=== PATIENT | male | born 1980 | race African-American/Black ===

== ENCOUNTER 2023-03-05 11:15 | Outpatient (CLI) | payer OTHER ==
--- NOTE | 2023-03-05 13:33 | XRAY Report ---
PROCEDURE: Lumbar Spine 2 View INDICATIONS: STRAIN/SPRAIN OF LOW BACK TECHNIQUE: 2 views of the lumbar spine were acquired. COMPARISON: None. FINDINGS: Bones: 5 [id number] vertebrae are present. Mild facet arthropathy of the lower lumbar spine. Mi ld disc height loss at L5-S1. There is normal bony alignment. No vertebral body compression fracture s. No suspicious bony lesions. Soft tissues: Overlying bowel gas pattern is normal. No suspicious soft tissue calcifications. IMPRESSION: Mild degenerative changes of the lower lumbar spine. Reviewed by: Juvencio Membreno MD on 03/05/2023 1:32 PM PST Approved by: Juvencio Membreno MD on 03/05/2023 1:32 PM PST Station ID: [id number]
== END 2023-03-05 11:16 | disposition home or self-care (01) ==
LOC: DI 11:15
PROVIDERS: ATTEND Family Medicine
DX: M47.817 Spondylosis without myelopathy or radiculopathy, lumbosacral region (principal); M47.816 Spondylosis without myelopathy or radiculopathy, lumbar region; S39.012D Strain of muscle, fascia and tendon of lower back, subsequent encounter

== ENCOUNTER 2023-04-12 02:54 | Emergency (ER) | payer OTHER ==
[2023-04-12 03:12] VITALS: O2SAT 98
--- NOTE | 2023-04-12 05:28 | ED Physician Documentation ---
History of Present Illness - Stated complaint Stated Complaint: LT KNEE PX - Chief complaint Chief Complaint: Ext Problem - History obtained from History obtained from: Patient - Additonal information Additional information: HPI from patient. Patient c/o left knee swelling, pain x 1-2 days. Denies trauma. Denies h/o similar symptoms. Pain is worse with palpation, movement (flexion), weight- bearing. Denies fever. Review of Systems Constitutional: denies: Fever Musculoskeletal: reports: Joint pain, Joint swelling Neurologic: denies: Focal weakness, Numbness PD PAST MEDICAL HISTORY - Past Medical History Past Medical History: Yes GI: GERD - Past Surgical History Past Surgical History: No - Present Medications Home Medications: Ambulatory Orders Medication Instructions Recorded Confirmed Cyclobenzaprine [Flexeril] 10 mg PO TID PRN 04/12/23 04/12/23 Ibuprofen [Motrin] 600 mg PO Q6H PRN 04/12/23 04/12/23 Ibuprofen [Motrin] 600 mg PO Q6H PRN #20 tab 04/12/23 Levothyroxine Sodium [Synthroid] 75 mcg PO DAILY 04/12/23 04/12/23 Omeprazole Magnesium 20 mg PO DAILY 04/12/23 04/12/23 oxyCODONE [Roxicodone] 5 - 10 mg PO Q6H PRN #14 tablet 04/12/23 - Allergies Allergies/Adverse Reactions: Allergies Allergy/AdvReac Type Severity Reaction Status Date / Time No Known Drug Allergies Allergy Verified 04/12/23 03:11 - Social History Does the pt smoke?: No Smoking Status: Never smoker Does the pt drink ETOH?: Yes Does the pt have substance abuse?: No PD ED PE NORMAL - Vitals Vital signs reviewed: Yes - General General: Alert and oriented X 3, No acute distress, Well developed/nourished PD ED PE EXPANDED - Extremities Extremities: Other (left knee is swollen, faint erythema, subtle increased warmth compared to surrounding skin and other knee. ROM limited: flexion limited due to pain with flexion) Results - Vitals Vitals: Oxygen O2 Source Room air PD Medical Decision Making - ED course Complexity details: considered differential, d/w patient ED course: two attempts to tap fluid from the left knee were unsuccessful by me. I undertook sterile prep of the medial aspect and used a 22g needle to attempt to aspirate the knee joint accessing medial aspect aiming inferiorly and posteriorly. There was no fluid return on either attempt. 2% lidocaine without epineprhine supplemented with ethyl chloride spray were used for analgesia for the procedure, which he tolerated well. During these attempts at arthrocentesis, I increasingly suspected the fluid collection is in the suprapatellar space and, to a lesser extent, infrapatellar space; likely bursitis and not inflammatory and/or infectious arthritic process. Given ibuprofen and oxycodone with oxycodone prescription. Return precautions carefully reviewed; I explained to him to have low threshhold for return for reevalaution, particularly for fever 100.4 or higher, worsening pain/swelling of the knee. Departure - Departure Disposition: 01 Home, Self Care Clinical Impression: Bursitis Qualifiers: Bursitis location: knee Knee bursitis location: unspecified Laterality: left Qualified Code(s): M70.52 - Other bursitis of knee, left knee Condition: Good Instructions: ED Bursitis Prescriptions: Ibuprofen [Motrin] 600 mg PO Q6H PRN #20 tab PRN Reason: Pain oxyCODONE [Roxicodone] 5 - 10 mg PO Q6H PRN #14 tablet PRN Reason: Pain >8 Comments: I suspect you have an inflammatory bursitis of the knee. Included in this packet are discharge instructions about bursitis. You were given an anti- inflammatory (ibuprofen) as well as a narcotic/opiate pain medication (oxycodone) in the emergency department. I have electronically submitted prescriptions for both of these medications to the [facility] pharmacy in [place]. Please return to the emergency department if your symptoms worsen, or if you develop new/concerning signs/symptoms (such as fever). Otherwise, contact your primary care provider when the office is open to arrange for next available appointment for follow up/reevaluation. I am prescribing a short course of narcotic pain medication for you. These are potentially dangerous and addictive medications that should be used carefully. These medications may constipate you. Take an aghm-btr-ykuiipz stool softener (docusate) twice daily with plenty of water while taking these medications. If you go 24 hours without a bowel movement, take ybuc-[id number] miralax, per package instructions. Do not drink or drive while taking these medications. If you received narcotic or sedating medications while in the emergency department, do not drive for 24 hours. Store this medication in a safe, secure place and out of reach of children. It is a violation of federal law to give or sell this medication to another person or to use in a manner other than prescribed. The ED will not refill narcotic prescriptions, including prescriptions lost or stolen. To dispose of unwanted medications: 1. [facility] at [address] in [place] has a medication drop box. They accept prescription medications (in pill form) Thursday through Thursday 9:00 a.m. to 5:00 p.m. 2. [facility] accepts prescription medications (in pill form only) for disposal year round. Call for more information. 3. Contact the [facility] for the next [facility] sponsored prescription drug collection event. , [phone], or [phone]; Forms: PCP List Discharge Date/Time: 04/12/23 07:50
[2023-04-12] MEDS ORDERED: LIDOCAINE 2% 10 ML MDV SUBQ ONE (05:44)
[2023-04-12] MEDS ORDERED: LIDOCAINE-MPF 2% 5 ML VIAL ONE (06:05)
[2023-04-12 06:50] VITALS: BP 150/102
[2023-04-12] MEDS ORDERED: oxyCODONE 5 MG TABLET PO STA (06:50)
[2023-04-12] MEDS ORDERED: IBUPROFEN 600 MG TABLET PO STA (06:50)
[2023-04-12] MEDS ORDERED: LIDOCAINE-MPF 2% 5 ML VIAL SUBQ STA (08:21)
== END 2023-04-12 07:50 | disposition home or self-care (01) ==
LOC: ED 02:54
DX: M70.52 Other bursitis of knee, left knee (principal); Z79.899 Other long term (current) drug therapy
CPT/HCPCS: 20610; 99282; 99283; A9270

== ENCOUNTER 2023-05-19 06:17 | Day surgery (SDC) | payer OTHER ==
[2023-05-19] MEDS ORDERED: LACTATED RINGERS 1,000 ML IV ONE ×2 (06:27→09:17)
--- NOTE | 2023-05-19 06:58 | ANESTHESIA ---
Pre-Anesthesia VS, & Labs - Diagnosis R inguinal hernia - Procedure R inguinal hernia repair with mesh Vital Signs: Temp Pulse Resp BP Pulse Ox O2 Flow Rate 36.3 C L 75 12 130/83 H 97 05/19/23 06:31 05/19/23 06:31 05/19/23 06:31 05/19/23 06:31 05/19/23 06:31 Height: 5 ft 2 in Weight (kg): 79.5 kg Body Mass Index: 32.0 BMI Classification: Obese - NPO >8 hours - Lab Results Lab results reviewed: Yes Home Medications and Allergies Levothyroxine Sodium [Synthroid] 75 mcg PO DAILY 04/12/23 Omeprazole Magnesium 20 mg PO DAILY 04/12/23 Allergies/Adverse Reactions: Allergies Allergy/AdvReac Type Severity Reaction Status Date / Time No Known Drug Allergies Allergy Verified 04/12/23 03:11 Anes History & Medical History - Anesthetic History Anesthesia Complications: reports: No previous complications Family history of Anesthesia Complications: Denies Family history of Malignant Hyperthermia: Denies - Medical History Cardiovascular: reports: None Pulmonary: reports: None Gastrointestinal: reports: GERD, Hiatal hernia Urinary: reports: None Musculoskeletal: reports: None Endocrine/Autoimmune: reports: HyPOthyroidism Skin: reports: None Smoking Status: Never smoker - Surgical History General: reports: EGD Exam General: Alert, Oriented x3, Cooperative Dental: WNL Mouth Openin Fingerbreadth Neck Mobility: Normal Mallampati classification: II Thyromental Distance: 4-6 cm Respiratory: Lungs clear, Normal breath sounds, No respiratory distress Cardiovascular: Regular rate Neurological: Normal speech Mental/Cognitive Status: Alert/Oriented X3, Normal for patient Cognitive Status: Within normal limits Plan Anesthesia Type: General Consent for Procedure(s) Verified and Reviewed: Yes Code Status: Attempt Resuscitation ASA classification: 2-Mild systemic disease Is this case an emergency?: No
[2023-05-19] MEDS ORDERED: NALOXONE 0.4 MG/ML VIAL IVP PRN (07:14)
[2023-05-19] MEDS ORDERED: ePHEDrine 50 MG/ML VIAL IVP PRN (07:14)
[2023-05-19] MEDS ORDERED: fentaNYL 100 MCG/2 ML VIAL IVP PRN (07:14)
[2023-05-19] MEDS ORDERED: MORPHINE 2 MG/ML CARPUJECT IVP PRN (07:14)
[2023-05-19] MEDS ORDERED: ATROPINE ABBOJECT 1 MG/10 ML SYRINGE IVP PRN (07:14)
[2023-05-19] MEDS ORDERED: ONDANSETRON 4 MG/2 ML VIAL IVP PRN ×2 (07:14→09:30)
[2023-05-19] MEDS ORDERED: METOCLOPRAMIDE 10 MG/2 ML VIAL IVP PRN (07:14)
[2023-05-19] MEDS ORDERED: fentaNYL 100 MCG/2 ML VIAL ONE (07:22)
[2023-05-19] MEDS ORDERED: MIDAZOLAM 2 MG/2 ML VIAL ONE (07:22)
[2023-05-19] MEDS ORDERED: BUPIVACAINE 0.5%-EPI 1:200000 PF 30 ML VIAL ONE (07:22)
[2023-05-19] MEDS ORDERED: PROPOFOL 200 MG/20 ML VIAL IVP ONE (07:23)
[2023-05-19] MEDS ORDERED: LIDOCAINE-PF 2% 10 ML AMP SUBQ ONE (07:23)
[2023-05-19] MEDS ORDERED: SODIUM CHLORIDE 0.9% 10 ML VIAL IVP ONE (07:50)
[2023-05-19] MEDS ORDERED: ceFAZolin 1 GM VIAL ONE (07:50)
[2023-05-19] MEDS ORDERED: LACTATED RINGERS 1,000 ML IV SCH (08:00)
[2023-05-19] MEDS ORDERED: DEXAMETHASONE 4 MG/ML VIAL ONE (08:08)
[2023-05-19] MEDS ORDERED: ONDANSETRON 4 MG/2 ML VIAL ONE (08:08)
[2023-05-19] MEDS ORDERED: BUPIVACAINE 0.5%-EPI 1:200000 PF 30 ML VIAL SUBQ ONE (08:13)
[2023-05-19] MEDS ORDERED: GLYCOPYRROLATE 1 MG/5 ML VIAL ONE (08:14)
[2023-05-19] MEDS ORDERED: KETOROLAC 30 MG/ML VIAL ONE (08:47)
--- NOTE | 2023-05-19 09:16 | OPERATIVE REPORT ---
Operative Report - General Procedure Date: 05/19/23 Planned Procedure: RIGHT indirect inguinal herniorrhaphy Pre-Op Diagnosis: RIGHT indirect inguinal hernia Procedure Performed: RIGHT indirect inguinal herniorraphy with mesh Post Op Diagnosis: RIGHT indirect inguinal hernia - Procedure Note Primary Surgeon: Spencer Ellington MD Anesthesia Provider: Trey He CRNA Anesthesia Technique: General ET tube, Local (30 mL 1/2% marcaine with epinephrine) IV Fluids (mL): 500 Estimated Blood Loss (mL): 2 Drain/Tube Type: Other (None.) Indications: Symptomatic RIGHT indirect inguinal hernia Findings: RIGHT indirect inguinal hernia Complications: None. - Other Other Information/Narrative: After verbal and written informed consent was obtained detailing the operation, the alternatives the operation including no operation, risks of infection, bleeding requiring transfusion with its risks, nerve injury, and and after I met with the patient confirming the surgery and the site of surgery, the patient was brought to the operative suite and placed supine on the operating table. Great care was taken to avoid pressure points to prevent pressure necrosis or nerve injury. Monitoring devices were applied along with TEDs and pneumatic compression stockings (to prevent DVT). The patient received preoperative antibiotics for surgical prophylaxis. Trey He CRNA sedated and anesthetized the patient for the entire procedure. The patient was prepped and draped in the usual sterile manner. With the patient draped my initials were clearly visible. A "time in" then confirmed that the patient was identified with 3 identifiers (name, date, and medical record number), the history and physical was updated and in the chart, the signed consent confirming the procedure was in the chart, the patient was in the correct position, the aforementioned prophylactic measures were in place or given, we had the correct personnel and equipment to complete the procedure and that anesthesia and the surgical team were given an opportunity to express any concerns. With the agreement of everyone in the room we proceeded with the operation. A standard inguinal incision was made and dissection was carried down to the external oblique aponeurosis using a combination of Metzenbaum scissors and Bovie electrocautery. The external oblique aponeurosis was cleared of overlying adherent tissue, and the external ring was delineated. The external oblique was incised with a scalpel and this incision was carried down to the external ring using Metzenbaum scissors. Care was taken not to injure the ilioinguinal nerve. Having exposed the inguinal canal, the cord structures were from the canal using blunt dissection and a Mickey drain was placed around the cord structures at the level of the pubic tubercle. This Mickey drain was then used to retract the cord structures as needed. Adherent cremasteric muscle was dissected free from the cord using Bovie electrocautery. The cord was then explored using a combination of sharp and blunt dissection, and an indirect sac was found. The sac was then dissected back to the internal ring and high ligated with a 3-0 Vicryl suture. This was then transected the stump cauterized and allowed to retract back into the abdomen. A large Bard PerFix plug (ref#[id number], lot#[id number], use by 2027-09-15) was then inserted into the internal ring and secured to the edge of the internal ring using a 2-0 PDS. The PerFix onlay patch was then secured to the pubic tubercle with a 2 0- PDS U stitch. The mesh was then secured to the conjoined tendon superiorly using interrupted 2-0 PDS sutures and secured to the shelving edge of Poupart's ligament inferiorly using interrupted 2-0 PDS sutures. The mesh was secured around the cord structures loosely with a 2-0 PDS suture thus creating a new internal ring. The [place] drain was then removed. Meticulous hemostasis was obtained using Bovie electrocautery. The wound was then injected superficially and deep using 30 mL of half percent Marcaine with epinephrine. The incision the external oblique was approximated using 3-0 Vicryl in a running fashion thus reforming the external ring. The skin incision was approximated with 4-0 Monocryl in a subcuticular fashion. The skin was cleaned of its prep and Dermabond was applied. At this point a timeout was performed that confirmed that all counts were correct x2, the procedure that was performed, the blood loss, the IV fluids administered, the patient's condition, and any concerns of the operating team had. Having tolerated the procedure well, the patient was taken recovery room in good and stable condition. Gentle downward traction ensured the testes were well seated in the scrotum. The plan is for outpatient discharge when the patient is adequately recovered. CPT 83827 This document was created in part using voice recognition technology. Because of the inherent limitations of the system, occasional same sounding word substitutions and grammatical errors do occur and persist despite proofreading. Please read this document for content.
[2023-05-19] MEDS: HYDROmorphone 0.5 MG/0.5 ML SYRINGE IVP PRN ×2 (09:30→09:41)
[2023-05-19] MEDS ORDERED: HYDROcod/ACETAM 5/325 MG TABLET PO PRN (09:30)
[2023-05-19] MEDS ORDERED: HYDROmorphone 0.5 MG/0.5 ML SYRINGE IVP PRN (09:30)
[2023-05-19] MEDS ORDERED: HYDROcod/ACETAM 5/325 MG TABLET ONE (10:02)
[2023-05-19 10:18] VITALS: BP 122/80; O2SAT 97
--- NOTE | 2023-05-19 13:09 | ANESTHESIA POST OP EVALUATION ---
Anesthesia Post Eval - Post Anesthesia Eval Vitals: Last Vital Signs Temp 36.1 C L 05/19/23 10:08 Pulse 87 05/19/23 10:08 Resp 18 05/19/23 10:08 BP 122/80 05/19/23 10:08 Pulse Ox 97 05/19/23 10:08 O2 Flow Rate CV Function Including HR & BP: Stable Pain Control: Satisfactory Nausea & Vomiting: Negative Mental Status: Baseline Respiratory Status: Airway Patent Hydration Status: Satisfactory Anesthesia Complications: None
== END 2023-05-19 06:18 | disposition home or self-care (01) ==
LOC: SDS 06:17
PROVIDERS: ATTEND Surgery
DX: K40.90 Unilateral inguinal hernia, without obstruction or gangrene, not specified as recurrent (principal); E66.9 Obesity, unspecified; Z68.32 Body mass index [BMI] 32.0-32.9, adult
CPT/HCPCS: 49505; A9270; C1781; J7120